=== PATIENT | female | born 1990 | race Caucasian/White ===

== ENCOUNTER 2017-01-28 14:49 | Emergency (ER) | payer MEDICAID ==
--- NOTE | 2017-01-30 08:16 | ER ---
ADMIT: 01/28/2017 RM/LOC: ER [facility] MR#: [id number] [address] [id number] QUOC MORROW [address] [place] [id number] Emergency Room Report SEX: F AGE: 26 : 1990 DATE: 01/28/2017 ADDENDUM: CHIEF COMPLAINT: Dental pain. HISTORY OF PRESENT ILLNESS: This is a 26-year-old female who said she has had a fractured tooth, known for a couple years, just recently it has been causing her pain. The reason that she comes to the ER today because she has numbness and tingling on right side of her face and she has never had this before. COURSE IN THE EMERGENCY ROOM: CT of her head and facial was done. She does have an abscess but it is localized to the maxillary area. I am sending her home on Amoxil and tramadol for infection and pain. Having her followup with a dentist tomorrow. CLINICAL IMPRESSION: Dental abscess. LICO Weiss / Kwasi Wray MD / kevan JOB #: [id number] CC: Kwasi Wray MD, Attending Physician UNKNOWN, Family Physician
== END 2017-01-28 16:46 | disposition home or self-care (01) ==
LOC: ER 14:49
DX: K04.7 Periapical abscess without sinus (principal); Z87.891 Personal history of nicotine dependence; Z98.890 Other specified postprocedural states